=== PATIENT | female | born 1960 | race Caucasian/White ===

== ENCOUNTER 2023-07-20 16:17 | Outpatient (OUT) | payer MEDICARE, SELFPAY | END 2023-07-20 16:18 | disposition home or self-care (01) | LOC: LAB 16:23 | PROVIDERS: PCP Family Medicine; Visit Provider Psychiatry & Neurology Neurology | DX: G60.9 Hereditary and idiopathic neuropathy, unspecified (principal) | CPT/HCPCS: 36415; 82607; 82746 ==